=== PATIENT | male | born 1975 | race Hispanic/Latino ===

== ENCOUNTER → 2020-05-21 | Outpatient (CLI) | payer OTHER | END | disposition home or self-care (01) | LOC: OIH 16:23 | PROVIDERS: ATTEND Family Medicine | DX: Z13.6 Encounter for screening for cardiovascular disorders (principal) | CPT/HCPCS: 75571 ==

== ENCOUNTER → 2023-05-17 | Outpatient (CLI) | payer OTHER | END | disposition home or self-care (01) | LOC: OIH 14:20 | PROVIDERS: ATTEND Internal Medicine Cardiovascular Disease | DX: Z13.6 Encounter for screening for cardiovascular disorders (principal); I10 Essential (primary) hypertension; E11.9 Type 2 diabetes mellitus without complications; R01.1 Cardiac murmur, unspecified | CPT/HCPCS: 75571 ==

== ENCOUNTER 2023-07-08 09:06 | Emergency (ER) | payer BC ==
[~2023-07-08] VITALS: Ht 167.6 cm; Wt 88.5 kg
[~2023-07-08 09:06] MED LIST: ASPI-1005 PO; CLOP-31 PO; ESCI-8 PO; FURO20TA6 PO; LISI10TA24 PO; METO50TA9 PO; SIMV-43 PO; TESTOSTERONE IM; TIRZ15PE SQ
[2023-07-08 10:11] LABS: BASOPHILS # (AUTO) 0.05 K/uL (0.00-0.20); BASOPHILS % (AUTO) 0.6 % (0.0-5.0); EOSINOPHILS # (AUTO) 0.04 K/uL (0.00-0.70); EOSINOPHILS % (AUTO) 0.5 % (0.0-8.0); HEMATOCRIT 41.2 % (42-54); IMMATURE GRANULOCYTE ABSOLUTE 0.05 K/uL (0-1); LYMPHOCYTES # (AUTO) 1.5 K/uL (1.0-4.8); LYMPHOCYTES % (AUTO) 17.9 % (21.0-51.0); MEAN CORPUSCULAR HEMOGLOBIN 26.5 pg (27.0-33.0); MEAN CORPUSCULAR HGB CONC 31.6 g/dL (32.0-36.0); MEAN CORPUSCULAR VOLUME 84.1 fL (79-99); MONOCYTES # (AUTO) 0.7 K/uL (0.1-1.0); NEUTROPHILS # (AUTO) 6.2 K/uL (1.8-7.7); NEUTROPHILS % (AUTO) 72.4 % (40.0-77.0); PLATELET COUNT (AUTO) 233 K/uL (130-400); RED CELL DISTRIBUTION WIDTH 13.7 % (11.0-15.5); WHITE BLOOD COUNT (AUTO) 8.5 K/uL (4.8-10.8)
[2023-07-08 10:23] LABS: CREATININE 0.9 mg/dL (0.5-1.3); POTASSIUM 4.5 mmol/L (3.5-5.1)
[2023-07-08] MEDS ORDERED: GABA-529 PO (12:02)
[2023-07-08 12:26] VITALS: BP 121/71; PULSE 48; RESP 17; O2SAT 100
== END 2023-07-08 12:25 | disposition home or self-care (01) ==
LOC: EDH 09:06
DX: M79.604 Pain in right leg (principal); E11.9 Type 2 diabetes mellitus without complications; E78.00 Pure hypercholesterolemia, unspecified; I10 Essential (primary) hypertension; Z79.02 Long term (current) use of antithrombotics/antiplatelets; Z79.82 Long term (current) use of aspirin; Z79.899 Other long term (current) drug therapy; Z95.1 Presence of aortocoronary bypass graft
CPT/HCPCS: 36415; 80048; 85025; 93926; 93971

== ENCOUNTER → 2023-07-27 | Outpatient (CLI) | payer BC ==
[~2023-07-27] MED LIST changes: +GABA-529 PO
[2023-07-27 16:18] LABS: CREATININE 0.9 mg/dL (0.5-1.3); POTASSIUM 4.5 mmol/L (3.5-5.1)
== END | disposition home or self-care (01) ==
LOC: LAB 13:26
PROVIDERS: ATTEND Internal Medicine Cardiovascular Disease
DX: I50.21 Acute systolic (congestive) heart failure (principal)
CPT/HCPCS: 36415; 80048; 83880

== ENCOUNTER → 2023-09-06 | Outpatient (CLI) | payer BC ==
[2023-09-06 12:41] LABS: CREATININE 1.2 mg/dL (0.5-1.3); POTASSIUM 4.4 mmol/L (3.5-5.1)
== END | disposition home or self-care (01) ==
LOC: LAB 11:05
PROVIDERS: ATTEND Internal Medicine Cardiovascular Disease
DX: I50.22 Chronic systolic (congestive) heart failure (principal); I25.2 Old myocardial infarction
CPT/HCPCS: 36415; 80048; 83880

== ENCOUNTER 2023-10-08 19:01 | Inpatient (IN) | payer BC ==
[~2023-10-08] VITALS: Ht 170.2 cm; Wt 79.5 kg
[2023-10-08 19:30] LABS: BASOPHILS # (AUTO) 0.06 K/uL (0.00-0.20); BASOPHILS % (AUTO) 0.6 % (0.0-5.0); EOSINOPHILS # (AUTO) 0.01 K/uL (0.00-0.70); EOSINOPHILS % (AUTO) 0.1 % (0.0-8.0); HEMATOCRIT 43.9 % (42-54); IMMATURE GRANULOCYTE ABSOLUTE 0.02 K/uL (0-1); LYMPHOCYTES # (AUTO) 1.9 K/uL (1.0-4.8); LYMPHOCYTES % (AUTO) 18.8 % (21.0-51.0); MEAN CORPUSCULAR HEMOGLOBIN 22.8 pg (27.0-33.0); MEAN CORPUSCULAR HGB CONC 31.2 g/dL (32.0-36.0); MEAN CORPUSCULAR VOLUME 73.2 fL (79-99); MONOCYTES # (AUTO) 1.1 K/uL (0.1-1.0); MONOCYTES % (AUTO) 11.3 % (3.0-13.0); NEUTROPHILS # (AUTO) 6.9 K/uL (1.8-7.7); PLATELET COUNT (AUTO) 225 K/uL (130-400); RED CELL DISTRIBUTION WIDTH 19.9 % (11.0-15.5)
[2023-10-08] MEDS ORDERED: ATOR40TA71 PO (19:34)
[2023-10-08] MEDS ORDERED: ZOLP10TA2 PO (19:36)
[2023-10-08] MEDS ORDERED: SPIR25TA6 PO (19:37)
[2023-10-08] MEDS ORDERED: METO-408 PO (19:39)
[2023-10-08] MEDS ORDERED: VALS80TA30 PO (19:41)
[2023-10-08 19:46] LABS: INR 1.24 (0.85-1.15); PARTIAL THROMBOPLASTIN TIME 28.9 SEC (26.3-35.5); PROTHROMBIN TIME 13.2 SEC (9.6-11.6)
[2023-10-08 19:50] LABS: CREATININE 1.2 mg/dL (0.5-1.3); POTASSIUM 3.4 mmol/L (3.5-5.1)
[2023-10-08 19:57] LABS: APPEARANCE,URINE CLEAR (CLEAR); BILIRUBIN,URINE NEGATIVE (NEGATIVE); COLOR,URINE YELLOW (YELLOW); GLUCOSE, URINE (UA) NEGATIVE (NEGATIVE); KETONES,URINE 5 mg/dL (NEGATIVE); LEUKOCYTE ESTERASE ,URINE NEGATIVE Leu/uL (NEGATIVE); NITRATE,URINE NEGATIVE (NEGATIVE); OCCULT BLOOD,URINE NEGATIVE (NEGATIVE); PH,URINE 5.5 (5.0-8.0); PROTEIN,URINE 70 mg/dL (NEGATIVE); UROBILINOGEN,URINE 0.2 mg/dL (0.2-1.0)
[2023-10-08 20:00] LABS: ADD UA MICROSCOPIC YES
[2023-10-08 20:02] LABS: MUCUS,URINE RARE LPF (None Seen); RBC,URINE 0-1 /HPF (0-1); WBC,URINE 0-1 /HPF (0-1)
[2023-10-08] MEDS: MORPHINE 4 MG SYG IVP ONE (20:04)
[2023-10-08] MEDS: ONDANSETRON 4MG INJ IVP ONE (20:04)
[2023-10-08] MEDS: HEParin 5,000 UNIT VIAL IV ONE (20:05)
[2023-10-08] MEDS: ASPIRIN 325MG TAB PO ONE (20:05)
[2023-10-08 20:08] LABS: B-TYPE NATRIURETIC PEPTIDE 1020 pg/mL (0-100)
[2023-10-08] MEDS: NITROGLYCERIN 0.4 MG SL TAB SL PRN (20:08)
[2023-10-08] MEDS: POTASSIUM BICARB/CIT AC 25 MEQ TABLET.EFF PO SCH (20:54)
[2023-10-08] MEDS: HEParin 25,000 UNITS/250ML D5W 250 ML IV SCH (21:08)
[2023-10-08] MEDS ORDERED: TEMAZEPAM 15 MG CAPSULE PO PRN (21:30)
[2023-10-08] MEDS ORDERED: doCUSate SODIUM 100 MG CAP PO PRN (21:30)
[2023-10-08] MEDS ORDERED: hydrALAZine 20MG/ML VIAL IV PRN (21:30)
[2023-10-08] MEDS ORDERED: ALBUTEROL 0.083% 2.5 MG/3 ML INH IH PRN (21:30)
[2023-10-08] MEDS ORDERED: IpraTROPium 0.5 MG/2.5 ML INH IH PRN (21:30)
[2023-10-08] MEDS ORDERED: LACTULOSE 20 GM/30 ML UDCUP PO PRN (21:30)
[2023-10-08] MEDS ORDERED: acetaMINOPHEN 650 MG SUPPOSITORY RC PRN (21:30)
[2023-10-08 22:01] VITALS: PULSE 93; RESP 20; O2SAT 97
[2023-10-08 22:02] LABS: AMPHET/METH SCREEN,URINE NEGATIVE (NEGATIVE); BARBITURATE SCREEN, URINE NEGATIVE (NEGATIVE); BENZODIAZEPINES SCREEN,URINE NEGATIVE (NEGATIVE); CANNABINOID SCREEN,URINE NEGATIVE (NEGATIVE); COCAINE SCREEN,URINE NEGATIVE (NEGATIVE); OPIATE SCREEN,URINE NEGATIVE (NEGATIVE); PHENCYCLIDINE SCREEN,URINE NEGATIVE (NEGATIVE)
[2023-10-08] MEDS: NITROGLYCERIN 50MG/D5W 250ML 1 BOT IV PRN (22:23)
[2023-10-08 22:59] LABS: SARS-CoV-2, RNA, NAAT NEGATIVE SARS CoV-2 (NEGATIVE)
[2023-10-08 23:02] LABS: INFLUENZA TYPE A Negative For Type A (NEGATIVE); INFLUENZA TYPE B Negative For Type B (NEGATIVE)
[2023-10-08] MEDS: ATORVASTATIN 40 MG TABLET PO SCH (23:37)
[2023-10-08] MEDS: FAMOTIDINE 20MG TAB PO SCH (23:37)
[2023-10-09] VITALS (60 sets, daily range): BP systolic 58–160; BP diastolic 23–103; PULSE 90–111; RESP 6–49; O2SAT 95–98
[2023-10-09 01:34] LABS: ABG BASE EXCESS 0.7 mmol/L (-2.0-3.0); ABG HCO3 23.7 mmol/L (21.0-28.0); ABG OXYGEN SATURATION 89.5 % (94.0-98.0); ABG PCO2 33 mmHg (35-48); ABG PH 7.471 (7.350-7.450); CARBON MONOXIDE 0.5 % (0.5-1.5); DEVICE COMMENT RA RN MICHAEL; HHb 10.4; PO2, ARTERIAL BG 58.4 mmHg (83.0-108.0); VENT MODE, BG RA (ROOM AIR)
[2023-10-09] MEDS: MAGNESIUM 2GM PREMIX 50ML 50 ML IV SCH (01:56)
[2023-10-09] MEDS: acetaMINOPHEN 325 MG TAB PO PRN (04:12)
[2023-10-09] MEDS: INSULIN humuLIN R 100 UNIT/ML 3ML SQ SCH (06:11)
[2023-10-09 06:15] LABS: BASOPHILS # (AUTO) 0.05 K/uL (0.00-0.20); BASOPHILS % (AUTO) 0.7 % (0.0-5.0); EOSINOPHILS # (AUTO) 0.07 K/uL (0.00-0.70); HEMATOCRIT 38.9 % (42-54); IMMATURE GRANULOCYTE ABSOLUTE 0.02 K/uL (0-1); LYMPHOCYTES # (AUTO) 1.6 K/uL (1.0-4.8); LYMPHOCYTES % (AUTO) 21.8 % (21.0-51.0); MEAN CORPUSCULAR HEMOGLOBIN 22.6 pg (27.0-33.0); MEAN CORPUSCULAR HGB CONC 30.3 g/dL (32.0-36.0); MEAN CORPUSCULAR VOLUME 74.4 fL (79-99); MONOCYTES # (AUTO) 0.8 K/uL (0.1-1.0); MONOCYTES % (AUTO) 11.7 % (3.0-13.0); NEUTROPHILS # (AUTO) 4.6 K/uL (1.8-7.7); NEUTROPHILS % (AUTO) 64.5 % (40.0-77.0); PLATELET COUNT (AUTO) 191 K/uL (130-400); RED BLOOD CELL COUNT(AUTO) 5.23 MIL/uL (4.50-6.20); RED CELL DISTRIBUTION WIDTH 19.1 % (11.0-15.5); WHITE BLOOD COUNT (AUTO) 7.1 K/uL (4.8-10.8)
[2023-10-09 06:39] LABS: CREATININE 1.1 mg/dL (0.5-1.3); MAGNESIUM 1.7 mg/dL (1.80-2.40); PHOSPHORUS 3.6 mg/dL (2.5-4.9); POTASSIUM 3.6 mmol/L (3.5-5.1); THYROID STIMULATING HORMONE 1.95 uIU/mL (0.36-3.74)
[2023-10-09] MEDS ORDERED: LIDOCAINE HCL 400MG/20ML VIAL ONE (09:54)
[2023-10-09] MEDS ORDERED: HEParin-NS 1,000 UNIT/500 ML 1,000 ML IV ONE (09:55)
[2023-10-09] MEDS ORDERED: HEParin 10,000 UNIT/10ML (1,000 UNIT/ML) VIAL ONE (09:55)
[2023-10-09] MEDS ORDERED: NITROGLYCERIN 50MG VIAL ONE (09:55)
[2023-10-09] MEDS ORDERED: IOHEXOL 350 MG/ML 100ML INFUS..BTL IV ONE ×2 (09:55→11:23)
[2023-10-09] MEDS ORDERED: FENTanyl CITRate PF 50 MCG/1 ML 2ML VIAL ONE ×2 (10:06→11:38)
[2023-10-09] MEDS ORDERED: MIDAZOLAM HCL 1 MG/ML 2ML VIAL ONE (10:06)
[2023-10-09] MEDS ORDERED: BIVALIRUDIN 250 MG/VIAL IV ONE (10:16)
[2023-10-09] MEDS ORDERED: IOHEXOL-350 50ML VIAL IV ONE (10:30)
[2023-10-09] MEDS ORDERED: HEParin-NS 1,000 UNIT/500 ML 500 ML IV ONE (10:56)
[2023-10-09] MEDS ORDERED: TICAGrelor 90 MG TABLET ONE (10:59)
[2023-10-09] MEDS ORDERED: ATROPINE 1MG SYG IVP ONE (11:09)
[2023-10-09] MEDS ORDERED: ONDANSETRON 4MG INJ ONE (11:09)
[2023-10-09] MEDS ORDERED: LISINOPRIL 2.5 MG TABLET PO SCH (12:30)
[2023-10-09] MEDS: 0.9%NACL 1000ML 1,000 ML IV SCH (12:40)
[2023-10-09] MEDS ORDERED: LoSARTan 50 MG TABLET PO SCH (13:10)
[2023-10-09] MEDS: VALSARTAN 80 MG PO SCH (13:30)
[2023-10-09 14:19] LABS: MAGNESIUM 1.9 mg/dL (1.80-2.40); POTASSIUM 4.3 mmol/L (3.5-5.1)
[2023-10-09] MEDS ORDERED: HYDROcodone/APAP 5/325 1 TAB TABLET PO PRN (14:30)
[2023-10-09] MEDS: HYDROcodone/acetaMINOPHEN 10/325 MG TAB PO PRN (14:30)
[2023-10-09] MEDS ORDERED: ONDANSETRON 4MG INJ IV PRN (17:00)
[2023-10-09] MEDS ORDERED: PHARMACY COMMUNICATION MISC PRN (17:00)
[2023-10-09] MEDS ORDERED: chlordiazePOXIDE HCL 25 MG CAP PO PRN (17:00)
[2023-10-09] MEDS ORDERED: LORazepam 2 MG/ML 1 ML VIAL IVP PRN (17:00)
[2023-10-09] MEDS: MAGNESIUM OXIDE 400 MG TABLET PO ONE (17:48)
[2023-10-09] MEDS: FOLIC ACID IV SCH (17:50)
[2023-10-09] MEDS: M V I IV SCH (17:50)
[2023-10-09] MEDS: [UNRECOGNIZED DRUG - OTHER] IV SCH (17:50)
[2023-10-09] MEDS: THIAMINE HCL IV SCH (17:50)
[2023-10-09] MEDS: metOPROLol sucCINATE 25 MG TAB.SR.24H PO SCH (21:05)
[2023-10-10 05:11] LABS: ALBUMIN 2.6 g/dL (3.5-5.0); BILIRUBIN,TOTAL 0.9 mg/dL (0.2-1.0); CREATININE 1.1 mg/dL (0.5-1.3); POTASSIUM 3.7 mmol/L (3.5-5.1); TOTAL PROTEIN, SERUM 5.4 g/dL (6.0-8.3)
[2023-10-10 05:55] LABS: BASOPHILS # (AUTO) 0.03 K/uL (0.00-0.20); BASOPHILS % (AUTO) 0.5 % (0.0-5.0); EOSINOPHILS # (AUTO) 0.05 K/uL (0.00-0.70); EOSINOPHILS % (AUTO) 0.8 % (0.0-8.0); HEMATOCRIT 39.2 % (42-54); IMMATURE GRANULOCYTE ABSOLUTE 0.01 K/uL (0-1); LYMPHOCYTES # (AUTO) 1.4 K/uL (1.0-4.8); MEAN CORPUSCULAR HEMOGLOBIN 22.7 pg (27.0-33.0); MEAN CORPUSCULAR HGB CONC 29.6 g/dL (32.0-36.0); MEAN CORPUSCULAR VOLUME 76.7 fL (79-99); MONOCYTES # (AUTO) 0.8 K/uL (0.1-1.0); MONOCYTES % (AUTO) 12.4 % (3.0-13.0); NEUTROPHILS # (AUTO) 4.1 K/uL (1.8-7.7); NEUTROPHILS % (AUTO) 64.1 % (40.0-77.0); PLATELET COUNT (AUTO) 160 K/uL (130-400); RED BLOOD CELL COUNT(AUTO) 5.11 MIL/uL (4.50-6.20); RED CELL DISTRIBUTION WIDTH 19.1 % (11.0-15.5); WHITE BLOOD COUNT (AUTO) 6.4 K/uL (4.8-10.8)
[2023-10-10 08:00] VITALS: BP 113/53; PULSE 93; RESP 21
[2023-10-10] MEDS: CLOPIDOGREL 75MG TAB PO SCH (08:47)
[2023-10-10] MEDS: FOLic ACID 1 MG TABLET PO SCH (08:47)
[2023-10-10] MEDS: ASPIRIN 81 MG EC TAB PO SCH (08:47)
[2023-10-10] MEDS: THIAMINE HCL 100 MG/ML 2ML VIAL IM SCH (08:48)
[2023-10-10] MEDS ORDERED: MULTIVITAMIN TABLET PO SCH (09:00)
[2023-10-10 09:03] VITALS: PULSE 97; RESP 18; O2SAT 96
[2023-10-10] MEDS ORDERED: METO25TA3 PO (10:09)
[2023-10-10 10:51] VITALS: O2SAT 98
[2023-10-10 11:00] VITALS: BP 120/73; PULSE 98; RESP 20
== END 2023-10-10 12:04 | disposition home or self-care (01) | DRG 321 ==
LOC: EDH 19:01 → EDHIP 21:08 → 2CH 10-09 02:27
PROVIDERS: ADMIT Internal Medicine Critical Care Medicine; ATTEND Internal Medicine Critical Care Medicine
PROC: 4A023N7 Measurement of Cardiac Sampling and Pressure, Left Heart, Percutaneous Approach (ICD-10-PCS; principal; 2023-10-09)
PROC: 027236Z Dilation of Coronary Artery, Three Arteries with Three Drug-eluting Intraluminal Devices, Percutaneous Approach (ICD-10-PCS; 2023-10-09)
PROC: B215YZZ Fluoroscopy of Left Heart using Other Contrast (ICD-10-PCS; 2023-10-09)
PROC: B2111ZZ Fluoroscopy of Multiple Coronary Arteries using Low Osmolar Contrast (ICD-10-PCS; 2023-10-09)
DX: I21.4 Non-ST elevation (NSTEMI) myocardial infarction (principal); I50.43 Acute on chronic combined systolic (congestive) and diastolic (congestive) heart failure; I13.0 Hypertensive heart and chronic kidney disease with heart failure and stage 1 through stage 4 chronic kidney disease, or unspecified chronic kidney disease; E87.20 Acidosis, unspecified; E11.22 Type 2 diabetes mellitus with diabetic chronic kidney disease; E86.0 Dehydration; I25.5 Ischemic cardiomyopathy; E11.65 Type 2 diabetes mellitus with hyperglycemia; N18.9 Chronic kidney disease, unspecified; F10.10 Alcohol abuse, uncomplicated; E78.00 Pure hypercholesterolemia, unspecified; I25.10 Atherosclerotic heart disease of native coronary artery without angina pectoris; E87.8 Other disorders of electrolyte and fluid balance, not elsewhere classified; E87.6 Hypokalemia; I49.3 Ventricular premature depolarization; T50.8X5A Adverse effect of diagnostic agents, initial encounter; K59.00 Constipation, unspecified; Z79.899 Other long term (current) drug therapy; Z53.29 Procedure and treatment not carried out because of patient's decision for other reasons; Z79.82 Long term (current) use of aspirin; Z95.5 Presence of coronary angioplasty implant and graft; Z82.49 Family history of ischemic heart disease and other diseases of the circulatory system; Z87.891 Personal history of nicotine dependence
CPT/HCPCS: 36415; 36600; 71045; 80048; 80053; 80305; 81001; 82435; 82550; 82803; 82947; 82948; 83605; 83735; 83880; 84100; 84132; 84295; 84443; 84484; 85018; 85025; 85610; 85730; 87635; 87804; 92978; 92979; 93005; 93459; 94664; 99156; 99157; 99291; C1760; C1769; C1874; C1887; C1894; C9600; C9601; G0378; J0461; J0583; J1644; J2250; J2270; J2405; J3010; J3411; J3475; J3490; J7030; Q9967; C1725; C1753; Q9965

== ENCOUNTER 2023-10-19 08:57 | Day surgery (SDC) | payer BC ==
[2023-10-15 08:53] VITALS: BP 112/62; PULSE 52; RESP 18; TEMP 97.3
[2023-10-15 09:13] LABS: BASOPHILS # (AUTO) 0.06 K/uL (0.00-0.20); EOSINOPHILS # (AUTO) 0.03 K/uL (0.00-0.70); EOSINOPHILS % (AUTO) 0.5 % (0.0-8.0); HEMATOCRIT 41.1 % (42-54); IMMATURE GRANULOCYTE ABSOLUTE 0.01 K/uL (0-1); LYMPHOCYTES # (AUTO) 1.6 K/uL (1.0-4.8); LYMPHOCYTES % (AUTO) 27.7 % (21.0-51.0); MEAN CORPUSCULAR HEMOGLOBIN 22.3 pg (27.0-33.0); MEAN CORPUSCULAR HGB CONC 29.7 g/dL (32.0-36.0); MEAN CORPUSCULAR VOLUME 75.1 fL (79-99); MONOCYTES # (AUTO) 0.6 K/uL (0.1-1.0); MONOCYTES % (AUTO) 9.4 % (3.0-13.0); NEUTROPHILS # (AUTO) 3.6 K/uL (1.8-7.7); NEUTROPHILS % (AUTO) 61.2 % (40.0-77.0); PLATELET COUNT (AUTO) 237 K/uL (130-400); RED BLOOD CELL COUNT(AUTO) 5.47 MIL/uL (4.50-6.20); RED CELL DISTRIBUTION WIDTH 18.8 % (11.0-15.5); WHITE BLOOD COUNT (AUTO) 5.9 K/uL (4.8-10.8)
[2023-10-15 09:26] LABS: CREATININE 1.2 mg/dL (0.5-1.3); POTASSIUM 4.3 mmol/L (3.5-5.1)
[2023-10-15 09:28] LABS: INR 1.18 (0.85-1.15); PROTHROMBIN TIME 12.6 SEC (9.6-11.6)
[2023-10-15 09:30] LABS: PARTIAL THROMBOPLASTIN TIME 26.1 SEC (26.3-35.5)
[~2023-10-19] VITALS: Ht 167.6 cm; Wt 82.2 kg
[2023-10-19] VITALS (8 sets, daily range): BP systolic 101–122; BP diastolic 64–87; PULSE 44–99; RESP 12–19; TEMP 97.4–97.8
[~2023-10-19 08:57] MED LIST changes: +ATOR40TA71 PO; -GABA-529 PO; -LISI10TA24 PO; +METO25TA3 PO; -METO50TA9 PO; -SIMV-43 PO; +SPIR25TA6 PO; +VALS80TA30 PO; +ZOLP10TA2 PO
[2023-10-19] MEDS ORDERED: ISOPROTERENOL HCL 0.2 MG/ML AMP/VIAL/BAG ONE (13:39)
[2023-10-19] MEDS ORDERED: HEParin-NS 1,000 UNIT/500 ML 1,000 ML IV ONE (13:39)
[2023-10-19] MEDS ORDERED: LIDOCAINE HCL 400MG/20ML VIAL ONE (13:39)
[2023-10-19] MEDS ORDERED: HEParin 10,000 UNIT/10ML (1,000 UNIT/ML) VIAL ONE ×2 (13:40→14:20)
[2023-10-19] MEDS ORDERED: MEPERIDINE-PF 25 MG/ML SYG ONE ×2 (14:01→14:48)
[2023-10-19] MEDS ORDERED: MIDAZOLAM HCL 1 MG/ML 2ML VIAL ONE ×2 (14:01→14:49)
[2023-10-19] MEDS ORDERED: HEParin-NS 1,000 UNIT/500 ML 500 ML IV ONE (15:03)
[2023-10-19] MEDS ORDERED: PROTAMINE SULFATE 10 MG/ML 5 ML VIAL ONE (16:10)
== END 2023-10-19 19:30 | disposition home or self-care (01) ==
LOC: DAH 08:57
PROVIDERS: ATTEND Internal Medicine Cardiovascular Disease
DX: I49.3 Ventricular premature depolarization (principal); I25.10 Atherosclerotic heart disease of native coronary artery without angina pectoris; I25.5 Ischemic cardiomyopathy; E78.5 Hyperlipidemia, unspecified; I44.0 Atrioventricular block, first degree; I11.0 Hypertensive heart disease with heart failure; I50.22 Chronic systolic (congestive) heart failure; Z95.1 Presence of aortocoronary bypass graft; Z87.891 Personal history of nicotine dependence; Z79.01 Long term (current) use of anticoagulants; Z79.899 Other long term (current) drug therapy
CPT/HCPCS: 80048; 85025; 85610; 85730; 36415 ×2; 93654; 85347 ×6; 93005; C1894 ×3; C1732 ×2; C1893; A4649 ×2; C1766; J3490; J2720; J1644 ×4; J2250 ×2; J2175 ×2; A4215; A4222; A4221; A4663; A4216; A4606; A4223 ×3; 99156; 99157

== ENCOUNTER → 2023-11-02 | Outpatient (CLI) | payer BC ==
[2023-11-02 16:52] LABS: CREATININE 1.1 mg/dL (0.5-1.3); POTASSIUM 4.7 mmol/L (3.5-5.1)
== END | disposition home or self-care (01) ==
LOC: LAB 14:38
PROVIDERS: ATTEND Internal Medicine Cardiovascular Disease
DX: I50.22 Chronic systolic (congestive) heart failure (principal)
CPT/HCPCS: 36415; 80048; 81241; 83880; 85302; 85303; 85305; 85306; 86147

== ENCOUNTER 2024-01-11 05:40 | Day surgery (SDC) | payer BC ==
[2024-01-07 08:43] LABS: BASOPHILS # (AUTO) 0.06 K/uL (0.00-0.20); BASOPHILS % (AUTO) 1.1 % (0.0-5.0); EOSINOPHILS # (AUTO) 0.03 K/uL (0.00-0.70); EOSINOPHILS % (AUTO) 0.6 % (0.0-8.0); HEMATOCRIT 45.7 % (42-54); IMMATURE GRANULOCYTE ABSOLUTE 0.01 K/uL (0-1); LYMPHOCYTES # (AUTO) 1.6 K/uL (1.0-4.8); MEAN CORPUSCULAR VOLUME 80.2 fL (79-99); MONOCYTES # (AUTO) 0.5 K/uL (0.1-1.0); NEUTROPHILS % (AUTO) 57.1 % (40.0-77.0); PLATELET COUNT (AUTO) 190 K/uL (130-400); WHITE BLOOD COUNT (AUTO) 5.2 K/uL (4.8-10.8)
[2024-01-07 08:47] VITALS: BP 109/58; PULSE 48; RESP 17; TEMP 97.4
[2024-01-07 08:53] LABS: INR 1.06 (0.85-1.15); PROTHROMBIN TIME 11.4 SEC (9.6-11.6)
[2024-01-07 08:54] LABS: PARTIAL THROMBOPLASTIN TIME 25.3 SEC (26.3-35.5)
[2024-01-07 09:00] LABS: CREATININE 1.1 mg/dL (0.5-1.3); POTASSIUM 4.6 mmol/L (3.5-5.1)
[~2024-01-11] VITALS: Ht 170.2 cm; Wt 83.5 kg
[2024-01-11] VITALS (10 sets, daily range): BP systolic 91–167; BP diastolic 54–83; PULSE 65–107; RESP 10–18; TEMP 97.1–98.1
[~2024-01-11 05:40] MED LIST changes: -ASPI-1005 PO; +METO-391 PO; -METO25TA3 PO; +SACU1TAB PO; -TESTOSTERONE IM; -VALS80TA30 PO; -ZOLP10TA2 PO
[2024-01-11] MEDS: 0.9%NACL 1000ML 1,000 ML IV ONE (07:25)
[2024-01-11] MEDS ORDERED: MEPERIDINE-PF 25 MG/ML SYG ONE ×2 (07:36→09:40)
[2024-01-11] MEDS ORDERED: MIDAZOLAM HCL 1 MG/ML 2ML VIAL ONE ×2 (07:36→09:40)
[2024-01-11] MEDS ORDERED: LIDOCAINE HCL 1% MDV 50ML VIAL ONE (07:36)
[2024-01-11] MEDS ORDERED: HEParin 10,000 UNIT/10ML (1,000 UNIT/ML) VIAL ONE (07:37)
[2024-01-11] MEDS ORDERED: HEParin-NS 1,000 UNIT/500 ML 1,000 ML IV ONE (07:37)
[2024-01-11] MEDS ORDERED: FENTanyl CITRate PF 50 MCG/1 ML 2ML VIAL ONE ×2 (07:57→10:04)
[2024-01-11] MEDS ORDERED: IOHEXOL-350 50ML VIAL IV ONE (09:12)
== END 2024-01-11 14:30 | disposition home or self-care (01) ==
LOC: DAH 05:40
PROVIDERS: ATTEND Internal Medicine Cardiovascular Disease
DX: I49.3 Ventricular premature depolarization (principal); I47.29 Other ventricular tachycardia; I25.10 Atherosclerotic heart disease of native coronary artery without angina pectoris; E11.9 Type 2 diabetes mellitus without complications; G47.33 Obstructive sleep apnea (adult) (pediatric); I11.0 Hypertensive heart disease with heart failure; I50.23 Acute on chronic systolic (congestive) heart failure; I25.2 Old myocardial infarction; Z95.5 Presence of coronary angioplasty implant and graft; Z95.1 Presence of aortocoronary bypass graft; Z99.89 Dependence on other enabling machines and devices; Z90.89 Acquired absence of other organs; Z79.899 Other long term (current) drug therapy
CPT/HCPCS: 80048; 85025; 85610; 85730; 36415; 93654; 93662; 85347; 82948 ×2; C1894 ×4; C1760 ×3; C1732 ×2; C1893; A4649 ×2; C1730; J3010 ×2; J7030; J1644 ×2; J2250 ×2; J2175; J3490; Q9967; A4215; A4222; A4221; A4663; A4216; A4606; A4223 ×3; 99156; 99157

== ENCOUNTER → 2024-03-06 | Outpatient (CLI) | payer BC ==
[2024-03-06 16:31] LABS: BASOPHILS # (AUTO) 0.04 K/uL (0.00-0.20); BASOPHILS % (AUTO) 0.7 % (0.0-5.0); EOSINOPHILS # (AUTO) 0.05 K/uL (0.00-0.70); EOSINOPHILS % (AUTO) 0.9 % (0.0-8.0); HEMATOCRIT 43.6 % (42-54); IMMATURE GRANULOCYTE ABSOLUTE 0.01 K/uL (0-1); LYMPHOCYTES # (AUTO) 1.3 K/uL (1.0-4.8); LYMPHOCYTES % (AUTO) 23.6 % (21.0-51.0); MEAN CORPUSCULAR HEMOGLOBIN 24.8 pg (27.0-33.0); MEAN CORPUSCULAR HGB CONC 30.3 g/dL (32.0-36.0); MONOCYTES # (AUTO) 0.6 K/uL (0.1-1.0); MONOCYTES % (AUTO) 11.4 % (3.0-13.0); NEUTROPHILS # (AUTO) 3.5 K/uL (1.8-7.7); NEUTROPHILS % (AUTO) 63.2 % (40.0-77.0); PLATELET COUNT (AUTO) 169 K/uL (130-400); RED BLOOD CELL COUNT(AUTO) 5.32 MIL/uL (4.50-6.20); RED CELL DISTRIBUTION WIDTH 18.3 % (11.0-15.5); WHITE BLOOD COUNT (AUTO) 5.6 K/uL (4.8-10.8)
[2024-03-06 16:51] LABS: ALBUMIN 3.6 g/dL (3.5-5.0); BILIRUBIN,TOTAL 0.7 mg/dL (0.2-1.0); CREATININE 1.2 mg/dL (0.5-1.3); POTASSIUM 5.2 mmol/L (3.5-5.1); TOTAL PROTEIN, SERUM 6.9 g/dL (6.0-8.3)
== END | disposition home or self-care (01) ==
LOC: LAB 11:44
PROVIDERS: ATTEND Internal Medicine Cardiovascular Disease
DX: I25.10 Atherosclerotic heart disease of native coronary artery without angina pectoris (principal); I50.22 Chronic systolic (congestive) heart failure; I25.2 Old myocardial infarction; E78.2 Mixed hyperlipidemia
CPT/HCPCS: 36415; 80053; 83880; 85025

== ENCOUNTER → 2024-05-15 | Outpatient (CLI) | payer BC ==
[~2024-05-15] VITALS: Ht 167.6 cm; Wt 89.8 kg
--- NOTE | 2024-05-15 09:16 | EKG ---
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1975 Requested By: JUANCHO SHIELDS Order Number: [id number] Reading MD: Young Leo Measurements Intervals [place] Rate: 84 P: -10 SC: 210 QRS: -69 QRSD: 155 T: 52 QT: 427 QTc: 505 Interpretive Statements Sinus rhythm Prolonged SC interval Right bundle branch block Inferior infarct, old Anteroseptal infarct, age indeterminate Compared to ECG 10/19/2023 17:05:33 Right bundle-branch block now present Left-axis deviation no longer present Myocardial infarct finding still present Electronically Signed On 05-24-2024 13:48:48 CDT by Young Leo Please click the below link to view image of tracing.
[2024-05-15 09:17] VITALS: BP 133/84; PULSE 89; RESP 16; TEMP 97.9
[2024-05-15 09:29] LABS: BASOPHILS # (AUTO) 0.04 K/uL (0.00-0.20); BASOPHILS % (AUTO) 0.8 % (0.0-5.0); EOSINOPHILS # (AUTO) 0.03 K/uL (0.00-0.70); EOSINOPHILS % (AUTO) 0.6 % (0.0-8.0); HEMATOCRIT 48.3 % (42-54); IMMATURE GRANULOCYTE ABSOLUTE 0.01 K/uL (0-1); LYMPHOCYTES # (AUTO) 1.2 K/uL (1.0-4.8); LYMPHOCYTES % (AUTO) 24.8 % (21.0-51.0); MEAN CORPUSCULAR HEMOGLOBIN 25.3 pg (27.0-33.0); MEAN CORPUSCULAR HGB CONC 31.1 g/dL (32.0-36.0); MEAN CORPUSCULAR VOLUME 81.5 fL (79-99); MONOCYTES # (AUTO) 0.6 K/uL (0.1-1.0); NEUTROPHILS # (AUTO) 2.9 K/uL (1.8-7.7); NEUTROPHILS % (AUTO) 61.6 % (40.0-77.0); PLATELET COUNT (AUTO) 188 K/uL (130-400); RED BLOOD CELL COUNT(AUTO) 5.93 MIL/uL (4.50-6.20); RED CELL DISTRIBUTION WIDTH 18.4 % (11.0-15.5); WHITE BLOOD COUNT (AUTO) 4.8 K/uL (4.8-10.8)
[2024-05-15 09:39] LABS: INR 1.06 (0.85-1.15); PROTHROMBIN TIME 11.2 SEC (9.6-11.6)
[2024-05-15 09:41] LABS: PARTIAL THROMBOPLASTIN TIME 25.8 SEC (26.3-35.5)
[2024-05-15 09:46] LABS: CREATININE 1.1 mg/dL (0.5-1.3); POTASSIUM 4.5 mmol/L (3.5-5.1)
== END | disposition home or self-care (01) ==
LOC: DAH 08:35 → EDSTATUS 15:00
PROVIDERS: ATTEND Internal Medicine Cardiovascular Disease
DX: Z01.818 Encounter for other preprocedural examination (principal); I45.10 Unspecified right bundle-branch block; I25.2 Old myocardial infarction; I21.9 Acute myocardial infarction, unspecified; R55 Syncope and collapse
CPT/HCPCS: 36415; 80048; 85025; 85610; 85730; 93005

== ENCOUNTER 2024-08-24 13:53 | Day surgery (SDC) | payer BC ==
[2024-08-22 09:15] LABS: IMMATURE GRANULOCYTE ABSOLUTE 0.01 K/uL (0-1); NUCLEATED RED BLOOD CELLS 0.0 % (0.0-0.19); PLATELET COUNT (AUTO) 157 K/uL (130-400); RED BLOOD CELL COUNT(AUTO) 5.19 MIL/uL (4.50-6.20); RED CELL DISTRIBUTION WIDTH 17.0 % (11.0-15.5); WHITE BLOOD COUNT (AUTO) 3.6 K/uL (4.8-10.8)
[2024-08-22 09:22] LABS: CREATININE 0.8 mg/dL (0.5-1.3); GLOMERULAR FILTR. RATE CALC 107.0 mL/min (>90); GLUCOSE,RANDOM 130.0 mg/dL (70-105); SODIUM SERUM 147.0 mmol/L (136-145); UREA NITROGEN, BLOOD 13.0 mg/dL (7-18)
[2024-08-22 09:24] LABS: INR 1.05 (0.85-1.15)
[2024-08-22 09:34] VITALS: BP 150/88; PULSE 84; RESP 15; TEMP 97.5
--- NOTE | 2024-08-22 10:40 | EKG ---
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
[2024-08-24] VITALS (7 sets, daily range): BP systolic 123–133; BP diastolic 78–92; PULSE 75–85; RESP 8–16; TEMP 97.8–97.9
[~2024-08-24] VITALS: Ht 167.6 cm; Wt 89.2 kg
[~2024-08-24 13:53] MED LIST changes: +ASPI-1443 PO; -ATOR40TA71 PO; -FURO20TA6 PO; +LIPITOR PO; -METO-391 PO; +METO100T7 PO; +SPIR25TA PO; -SPIR25TA6 PO
[2024-08-24] MEDS: 0.9%NACL 1000ML 1,000 ML IV SCH (14:27)
[2024-08-24] MEDS ORDERED: LIDOCAINE HCL 1% MDV 50ML VIAL ONE (16:13)
[2024-08-24] MEDS ORDERED: SODIUM BICARB 50MEQ 50ML VIAL 50 ML ONE (16:13)
[2024-08-24] MEDS ORDERED: MIDAZOLAM HCL 1 MG/ML 2ML VIAL ONE ×3 (16:19→17:07)
[2024-08-24] MEDS ORDERED: IOHEXOL-350 50ML VIAL IV ONE (17:16)
[2024-08-24] MEDS ORDERED: TRAM50TA4 PO (18:11)
--- NOTE | 2024-08-24 18:41 | NUR ---
POST GEOLOGY TECHNICIAN RECOVERY STERILE PRESSURE DRESSING APPLIED TO LEFT UPPER CHEST WITH STERILE STERI STRIPS IN PLACE AND STERILE TEGADERM. LEFT ARM IN SLING. NO ACTIVE BLEEDING NOTED OR DRAINAGE. NO REDNESS OR SWELLING NOTED. AT BEDSIDE. PATIENT AWAKE AND ALERT X4 CALL LIGHT AT BEDSIDE.
--- NOTE | 2024-08-24 18:56 | NUR ---
POST SCIENTIFIC PHOTOGRAPHER RECOVERY STERILE PRESSURE DRESSING APPLIED TO LEFT UPPER CHEST WITH STERILE STERI STRIPS IN PLACE AND STERILE TEGADERM. LEFT ARM IN SLING. NO ACTIVE BLEEDING NOTED OR DRAINAGE. NO REDNESS OR SWELLING NOTED. AT BEDSIDE. PATIENT AWAKE AND ALERT X4 CALL LIGHT AT BEDSIDE.
--- NOTE | 2024-08-24 19:11 | NUR ---
POST TOUR ACTOR RECOVERY STERILE PRESSURE DRESSING APPLIED TO LEFT UPPER CHEST WITH STERILE STERI STRIPS IN PLACE AND STERILE TEGADERM. LEFT ARM IN SLING. NO ACTIVE BLEEDING NOTED OR DRAINAGE. NO REDNESS OR SWELLING NOTED. AT BEDSIDE. PATIENT AWAKE AND ALERT X4 CALL LIGHT AT BEDSIDE.
--- NOTE | 2024-08-24 19:30 | NUR ---
POST ELECTRIC MILKERS INSTALLER REMOVED STERILE PRESSURE DRESSING. STERILE TEGADERM IN PLACE WITH 4X4 STERILE GAUZE. SWELLING TO THE SURROUNDING GAUZE/TEGADERM. NO ACTIVE BLEEDING, DRAINAGE OR REDNESS. AT BEDSIDE.
--- NOTE | 2024-08-24 19:41 | NUR ---
POST INSOLE FILLER LEFT ARM SLING IN PLACE. DRESSING INTACT. NO REDNESS OR DRAINAGE NOTED AND NO ACTIVE BLEEDING. SWELLING HAS NOT INCREASED.
--- NOTE | 2024-08-24 19:55 | NUR ---
POST WEAVER AXMINSTER NO REDNESS OR DRAINAGE TO THE LEFT UPPER SITE. NO ACTIVE BLEEDING. SWELLING THE JAZLYN NO INCREASE. SLING TO LEFT ARM. DRESSING INTACT.
--- NOTE | 2024-08-25 05:55 | HMCIMG ---
EXAM: CR Chest, 1 view CLINICAL HISTORY: Status post ICD. COMPARISON: Chest radiograph dated 10/08/2023. FINDINGS: Mild subsegmental atelectasis in the left mid zone. The lungs show no infiltrates or other acute findings. No pleural effusion or pneumothorax. The cardiomediastinal silhouette is within normal limits. Status poststernotomy. Left-sided cardiac pacemaker device in place. No acute osseous abnormality. IMPRESSION: No acute cardiopulmonary process is evident. Mild subsegmental atelectasis in the left mid zone. This is a new finding compared to the previous chest radiograph dated 10/08/2023. /[place]
== END 2024-08-24 20:16 | disposition home or self-care (01) ==
LOC: DAH 13:53
PROVIDERS: ATTEND Internal Medicine Cardiovascular Disease
DX: I25.5 Ischemic cardiomyopathy (principal); I50.22 Chronic systolic (congestive) heart failure; I25.2 Old myocardial infarction; I25.10 Atherosclerotic heart disease of native coronary artery without angina pectoris; I45.10 Unspecified right bundle-branch block; I49.3 Ventricular premature depolarization; I47.29 Other ventricular tachycardia; Z79.899 Other long term (current) drug therapy; Z95.1 Presence of aortocoronary bypass graft; Z79.82 Long term (current) use of aspirin
CPT/HCPCS: 80048; 85025; 85610; 85730; 36415; 93005; 33249; 99156; 99157 ×5; 82948 ×2; 71045; C1722; C1895; J3010 ×2; J0690; J7030; J0665; J3490 ×2; J2250 ×3; Q9967; A4215; A4222; A4221; A4663; A4216; A4606; A4223 ×3